=== PATIENT | male | born 1965 | race Caucasian/White ===

== ENCOUNTER 2017-12-28 07:00 | Inpatient (IN) | payer MEDICARE, MEDICAID ==
[~2017-12-28] VITALS: Ht 177.8 cm; Wt 92.6 kg
[~2017-12-28 07:00] MED LIST: ACYC-202 PO; DIVA500T7 PO; FENT-92 TD; FINA5TAB11 PO; FLO0.4C PO; GABA TOP; GABA-532 PO; IBU TOP; LURA40TA3 PO; MELOXICAM TOP; PANT20TA3 PO; PRAM0.5T3 PO; TIZA2TAB4 PO; TRAZ-146 PO
[2017-12-28] MEDS: tamsulosin 0.4mg capsule PO SCH (11:34)
[2017-12-28] MEDS: gabapentin 300mg capsule PO SCH ×3 (11:34→23:36)
[2017-12-28] MEDS: fentaNYL 75 MCG/hour patch.TD72 TD SCH (11:34)
[2017-12-28] MEDS: tizanidine 4mg tablet PO SCH ×3 (11:35→23:36)
[2017-12-28] MEDS: pantoprazole 40mg Tablet.DR PO SCH (11:35)
[2017-12-28 12:26] VITALS: BP 123/64
[2017-12-28] MEDS ORDERED: GABA TOP PRN (13:00)
[2017-12-28] MEDS ORDERED: IBU TOP PRN (13:00)
[2017-12-28] MEDS ORDERED: MELOXICAM TOP PRN (13:00)
[2017-12-28] MEDS: acyclovir 200 MG capsule PO SCH ×2 (13:54→20:30)
[2017-12-28] MEDS ORDERED: gabapentin 300mg capsule PO SCH (16:00)
[2017-12-28] MEDS ORDERED: lurasidone 20mg tablet PO SCH (17:00)
[2017-12-28 20:05] VITALS: BP 89/43
[2017-12-28] MEDS: traZODone 50mg tablet PO SCH (20:29)
[2017-12-28] MEDS: pramipexole 0.25mg tablet PO SCH (20:30)
[2017-12-28] MEDS: finasteride 5mg tablet PO SCH (20:30)
[2017-12-28] MEDS ORDERED: divalproex sodium 500mg tablet.DR PO SCH (21:00)
[2017-12-28] MEDS ORDERED: traZODone 50mg tablet PO SCH (21:00)
[2017-12-29 07:37] VITALS: BP 96/61
[2017-12-29] MEDS ORDERED: pantoprazole 40mg Tablet.DR PO SCH (08:00)
[2017-12-29] MEDS: tizanidine 4mg tablet PO SCH ×3 (08:07→23:05)
[2017-12-29] MEDS: pantoprazole 40mg Tablet.DR PO SCH (08:07)
[2017-12-29] MEDS: acyclovir 200 MG capsule PO SCH ×3 (08:07→20:32)
[2017-12-29] MEDS: tamsulosin 0.4mg capsule PO SCH (08:07)
[2017-12-29] MEDS: gabapentin 300mg capsule PO SCH ×3 (08:08→23:05)
[2017-12-29] MEDS: divalproex sod 250mg ER (24-hour) tablet PO SCH (08:10)
[2017-12-29] MEDS ORDERED: diclofenac cream TOP (08:53)
[2017-12-29] MEDS: DICLOFENAC GEL TOP PRN (11:15)
[2017-12-29] MEDS: LIDOcaine 5% patch TP SCH (11:15)
[2017-12-29] MEDS: ALPRAZolam 0.25mg tablet PO PRN (16:47)
[2017-12-29] MEDS: lurasidone 60mg tablet PO SCH (17:32)
[2017-12-29 19:16] VITALS: BP 123/82
[2017-12-29] MEDS: pramipexole 0.25mg tablet PO SCH (20:32)
[2017-12-29] MEDS: traZODone 50mg tablet PO SCH (20:32)
[2017-12-29] MEDS: finasteride 5mg tablet PO SCH (20:32)
[2017-12-30] MEDS: DICLOFENAC GEL TOP PRN ×2 (05:10→09:26)
[2017-12-30 07:03] VITALS: BP 115/76
[2017-12-30] MEDS: divalproex sod 250mg ER (24-hour) tablet PO SCH (09:24)
[2017-12-30] MEDS: tizanidine 4mg tablet PO SCH ×3 (09:24→23:15)
[2017-12-30] MEDS: gabapentin 300mg capsule PO SCH ×3 (09:24→23:15)
[2017-12-30] MEDS: sertraline 25mg tablet PO SCH (09:24)
[2017-12-30] MEDS: acyclovir 200 MG capsule PO SCH ×3 (09:24→20:23)
[2017-12-30] MEDS: tamsulosin 0.4mg capsule PO SCH (09:24)
[2017-12-30] MEDS: pantoprazole 40mg Tablet.DR PO SCH (09:25)
[2017-12-30] MEDS: LIDOcaine 5% patch TP SCH ×2 (09:26→15:52)
[2017-12-30] MEDS: fentaNYL 75 MCG/hour patch.TD72 TD SCH (09:26)
[2017-12-30] MEDS: lurasidone 60mg tablet PO SCH (17:52)
[2017-12-30 20:00] VITALS: BP 127/80
[2017-12-30] MEDS: traZODone 50mg tablet PO SCH (20:23)
[2017-12-30] MEDS: finasteride 5mg tablet PO SCH (20:23)
[2017-12-30] MEDS: pramipexole 0.25mg tablet PO SCH (20:23)
[2017-12-31] MEDS ORDERED: mag hydrox/Alum hydrox/simeth 30ml oral suspension PO ONE ×2 (03:05)
[2017-12-31] MEDS: ALPRAZolam 0.25mg tablet PO PRN (03:46)
[2017-12-31] MEDS: gabapentin 300mg capsule PO SCH ×3 (07:51→23:05)
[2017-12-31] MEDS: pantoprazole 40mg Tablet.DR PO SCH (07:51)
[2017-12-31] MEDS: sertraline 25mg tablet PO SCH (07:52)
[2017-12-31] MEDS: acyclovir 200 MG capsule PO SCH ×3 (07:52→20:38)
[2017-12-31] MEDS: divalproex sod 250mg ER (24-hour) tablet PO SCH (07:53)
[2017-12-31] MEDS: tamsulosin 0.4mg capsule PO SCH ×2 (07:54→20:37)
[2017-12-31] MEDS: tizanidine 4mg tablet PO SCH ×3 (07:59→23:05)
[2017-12-31 08:04] VITALS: BP 114/78
[2017-12-31] MEDS: HYDROcodone/acetaminophen 5mg/325mg tablet PO PRN ×2 (10:43→20:39)
[2017-12-31] MEDS: DICLOFENAC GEL TOP PRN (17:06)
[2017-12-31] MEDS: lurasidone 60mg tablet PO SCH (17:49)
[2017-12-31 19:00] VITALS: BP 126/71
[2017-12-31] MEDS: finasteride 5mg tablet PO SCH (20:38)
[2017-12-31] MEDS: pramipexole 0.25mg tablet PO SCH (20:38)
[2017-12-31] MEDS ORDERED: traZODone 50mg tablet PO SCH (21:00)
[2018-01-01] MEDS: HYDROcodone/acetaminophen 5mg/325mg tablet PO PRN ×2 (05:38→20:13)
[2018-01-01] MEDS: gabapentin 300mg capsule PO SCH ×2 (07:20→16:37)
[2018-01-01] MEDS: tizanidine 4mg tablet PO SCH ×2 (07:21→16:37)
[2018-01-01] MEDS: pantoprazole 40mg Tablet.DR PO SCH (07:21)
[2018-01-01] MEDS: acyclovir 200 MG capsule PO SCH ×3 (07:21→20:12)
[2018-01-01] MEDS: sertraline 25mg tablet PO SCH (07:21)
[2018-01-01 07:32] VITALS: BP 113/72
[2018-01-01] MEDS: divalproex sod 250mg ER (24-hour) tablet PO SCH (08:00)
[2018-01-01] MEDS: LIDOcaine 5% patch TP SCH (08:34)
[2018-01-01] MEDS: fentaNYL 75 MCG/hour patch.TD72 TD SCH (11:35)
[2018-01-01] MEDS: DICLOFENAC GEL TOP PRN (11:48)
[2018-01-01] MEDS: ALPRAZolam 0.25mg tablet PO PRN (13:42)
[2018-01-01] MEDS: lurasidone 60mg tablet PO SCH (16:41)
[2018-01-01 20:00] VITALS: BP 113/71
[2018-01-01] MEDS: tamsulosin 0.4mg capsule PO SCH (20:12)
[2018-01-01] MEDS: pramipexole 0.25mg tablet PO SCH (20:12)
[2018-01-01] MEDS: finasteride 5mg tablet PO SCH (20:13)
[2018-01-01] MEDS: traZODone 50mg tablet PO SCH (20:13)
[2018-01-02 07:26] VITALS: BP 121/81
[2018-01-02] MEDS: divalproex sod 250mg ER (24-hour) tablet PO SCH (08:01)
[2018-01-02] MEDS: tizanidine 4mg tablet PO SCH ×3 (08:02→16:17)
[2018-01-02] MEDS: sertraline 25mg tablet PO SCH (08:02)
[2018-01-02] MEDS: gabapentin 300mg capsule PO SCH ×4 (08:03→21:39)
[2018-01-02] MEDS: pantoprazole 40mg Tablet.DR PO SCH (08:03)
[2018-01-02] MEDS: acyclovir 200 MG capsule PO SCH ×3 (08:03→21:39)
[2018-01-02] MEDS: LIDOcaine 5% patch TP SCH (08:22)
[2018-01-02] MEDS: lurasidone 60mg tablet PO SCH (16:17)
[2018-01-02] MEDS: ALPRAZolam 0.25mg tablet PO PRN (16:51)
[2018-01-02] MEDS: HYDROcodone/acetaminophen 5mg/325mg tablet PO PRN (16:51)
[2018-01-02 20:41] VITALS: BP 129/74
[2018-01-02] MEDS ORDERED: tizanidine 4mg tablet PO SCH (21:30)
[2018-01-02] MEDS: traZODone 50mg tablet PO SCH (21:38)
[2018-01-02] MEDS: tamsulosin 0.4mg capsule PO SCH (21:38)
[2018-01-02] MEDS: finasteride 5mg tablet PO SCH (21:38)
[2018-01-02] MEDS: pramipexole 0.25mg tablet PO SCH (21:38)
[2018-01-03] MEDS ORDERED: LURA60TA2 PO (07:34)
[2018-01-03] MEDS ORDERED: SERT25TA5 PO (07:34)
[2018-01-03] MEDS ORDERED: TRAZ-146 PO (07:34)
[2018-01-03] MEDS ORDERED: ALPR-160 PO ×2 (07:37→07:38)
[2018-01-03 08:00] VITALS: BP 125/63
[2018-01-03] MEDS: LIDOcaine 5% patch TP SCH (08:00)
[2018-01-03] MEDS ORDERED: tizanidine 4mg tablet PO SCH (08:00)
[2018-01-03] MEDS ORDERED: docusate sod 100mg capsule PO SCH (08:00)
[2018-01-03] MEDS ORDERED: fentaNYL 75 MCG/hour patch.TD72 TD SCH (08:00)
[2018-01-03] MEDS: acyclovir 200 MG capsule PO SCH (08:30)
[2018-01-03] MEDS: pantoprazole 40mg Tablet.DR PO SCH (08:30)
[2018-01-03] MEDS: gabapentin 300mg capsule PO SCH (08:30)
[2018-01-03] MEDS: sertraline 25mg tablet PO SCH (08:30)
[2018-01-03] MEDS: divalproex sod 250mg ER (24-hour) tablet PO SCH (09:07)
== END 2018-01-03 11:45 | disposition home or self-care (01) | DRG 885 ==
LOC: ADULT MH 07:00
PROVIDERS: ADMIT Psychiatry & Neurology Psychiatry; ATTEND Psychiatry & Neurology Psychiatry
DX: F39 Unspecified mood [affective] disorder (principal); R45.851 Suicidal ideations; F31.9 Bipolar disorder, unspecified; F41.9 Anxiety disorder, unspecified; G89.29 Other chronic pain; K21.9 Gastro-esophageal reflux disease without esophagitis; G47.33 Obstructive sleep apnea (adult) (pediatric); M54.9 Dorsalgia, unspecified; M53.3 Sacrococcygeal disorders, not elsewhere classified; N40.0 Benign prostatic hyperplasia without lower urinary tract symptoms; Z90.49 Acquired absence of other specified parts of digestive tract; Z79.899 Other long term (current) drug therapy; Z88.0 Allergy status to penicillin; Z88.8 Allergy status to other drugs, medicaments and biological substances; Z91.012 Allergy to eggs; Z82.49 Family history of ischemic heart disease and other diseases of the circulatory system
CPT/HCPCS: 87070